=== PATIENT | female | born 1990 | race Caucasian/White ===

== ENCOUNTER 2018-06-20 13:30 | Emergency (ER) | payer OTHER ==
--- NOTE | 2018-06-20 13:43 | ED Physician Documentation ---
General Adult - HISTORIAN Historian: patient - HPI Stated Complaint: UTI, suprapubic catheter Chief Complaint: General Adult Onset: days ago (1) Timing: still present Severity: moderate Further Comments: yes (Pt is a 28 yo female with a suprapubic catheter that she has had for many years. 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 Pt is followed by urologist Dr. Mayers in [place] and has a follow-up appointment with him scheduled. Pt has been have L back/flank pain that began this am. No fever, n/v.) - ROS CONST: no problems EYES/ENT: none CVS/RESP: none GI/: other (cloudy urine, back pain) MS/SKIN/LYMPH: none - PAST HX Past History: kidney stones, other (chronic suprapubic catheter, "small bladder, one kidney not working well") Allergies/Adverse Reactions: Allergies Allergy/AdvReac Type Severity Reaction Status Date / Time Latex, Natural Rubber Allergy Verified 06/20/18 14:19 Home Medications: Ambulatory Orders Medication Instructions Recorded Ciprofloxacin HCl [Cipro] 500 mg PO DAILY #10 tablet 06/20/18 NK 06/20/18 - SOCIAL HX Smoking History: cigarettes - FAMILY HX Family History: No - REVIEWED ASSESSMENTS Nursing Assessment Reviewed: Yes Vitals Reviewed: Yes Progress - Progress Progress: Rocephin 1 gm IM in ER Rx Ciprofloxacin 500 mg. Take one by mouth once daily for 10 days. Follow up with urologist as planned. General Adult Physical Exam - PHYSICAL EXAM GENERAL APPEARANCE: mild distress EENT: pharynx normal NECK: normal inspection, supple RESPIRATORY: no resp distress, chest non-tender, breath sounds normal CVS: reg rate & rhythm, heart sounds normal ABDOMEN: soft, no organomegaly, normal bowel sounds BACK: normal inspection, CVA tenderness (L) SKIN: warm/dry, normal color EXTREMITIES: non-tender, normal range of motion, no evidence of injury, no edema NEURO: oriented X3, motor nml, sensation nml Discharge Clincal Impression: Suprpubic catheter UTI (urinary tract infection) Qualifiers: Urinary tract infection type: acute cystitis Hematuria presence: with hematuria Qualified Code(s): N30.01 - Acute cystitis with hematuria Prescriptions: Ciprofloxacin HCl [Cipro] 500 mg PO DAILY #10 tablet Referrals: Primary Doctor,No [Primary Care Provider] - 2 Days Condition: Stable Disposition: 01 HOME, SELF-CARE Decision to Admit: NO Decision Time: 14:33
[2018-06-20] MEDS ORDERED: cefTRIAXone SODIUM 1 GM INJ ONE (14:31)
[2018-06-20] MEDS ORDERED: LIDOCAINE HCL 1% PF 300MG/30ML VIAL ONE (14:32)
[2018-06-20] MEDS ORDERED: LIDOCAINE HCL 1% PF 300MG/30ML VIAL IJ ONE (14:36)
[2018-06-20 15:34] VITALS: BP 136/84
== END 2018-06-20 15:00 | disposition home or self-care (01) ==
LOC: ED 13:30
DX: N30.01 Acute cystitis with hematuria (principal); Z96.0 Presence of urogenital implants
CPT/HCPCS: 96372; 99282; J0696; J2001; 99284

== ENCOUNTER 2018-07-10 17:37 | Emergency (ER) | payer OTHER ==
[2018-07-10] MEDS ORDERED: ONDANSETRON HCL/PF 4 MG/ 2ML VIAL IVP ONE (18:05)
[2018-07-10] MEDS ORDERED: 0.9 % SODIUM CHLORIDE 1,000 ML IV ONE (18:20)
[2018-07-10] MEDS ORDERED: KETOROLAC TROMETHAMINE 30 MG/1ML VIAL IVP ONE (19:27)
[2018-07-10] MEDS ORDERED: ONDANSETRON HCL 4 MG TAB.RAPDIS PO ONE (22:30)
[2018-07-10] MEDS ORDERED: TAMSULOSIN HCL 0.4 MG CAP.ER.24H PO ONE (22:30)
--- NOTE | 2018-07-10 23:12 | Diagnostic Imaging Report ---
EUFEMIA DON [facility] [id number] [facility] [address] [place], [place]. [address] Report Submission Date: Jul 10, 2018 9:56:48 PM PUDDLER HELPER Patient Study Name: MELISA AMANDA Date: Jul 10, 2018 8:26:19 PM PUDDLER HELPER Modality Type: CT\SR Gender: F Description: ABD/PELV W/ : Institution: [facility] Physician: EUFEMIA DON CT abdomen and pelvis with contrast History: Urinary tract infection Technique: Helically acquired images were obtained from the hemidiaphragms to the pelvic floor following IV contrast. Findings: The liver, spleen, gallbladder, pancreas and adrenal glands are normal. There is mild right hydronephrosis and there is right hydroureter, most pronounced distally. Layering posteriorly within the bladder, there are multiple small stones. There is marked hydronephrosis of the left kidney resulting in cortical thinning of the left kidney. There is a delayed left nephrogram. The wall of the renal pelvis and of the left ureter is abnormally enhancing consistent with diffuse ureteritis. There is additionally inflammatory change surrounding the wall of the left renal pelvis and proximal to mid left ureter. The left ureter is dilated all the way to the bladder. However, only 1 stone is identified within the left ureter, posteriorly on image 76 of 101. This distal ureteral stone measures 3 mm. There is a catheter which enters the bladder from the umbilicus. The bladder wall is circumferentially thickened and the contour of the bladder is lobulated. The bladder is also asymmetrically positioned toward the right. There is air in the bladder presumably relating to the presence of the catheter. Surgical clips and sutures are present just superior to the bladder in association with a small bowel loop. In the region of the clips and sutures, there is a single mildly dilated small bowel loop containing an air-fluid level. Please correlate with the patient's surgical history. Essure type devices are present. The uterus and ovaries are unremarkable. There is no free fluid in the pelvis. Lung bases are clear. No osseous abnormalities are noted. Impression: There is mild right hydronephrosis and there is right hydroureter, most pronounced of the distal right ureter. The left collecting system is markedly abnormal. There is markedly severe left hydronephrosis. The dilated calices generate cortical thinning and there is a delayed left nephrogram. There is abnormal enhancement circumferentially involving the wall of the left renal pelvis and of the entire left ureter. These findings are consistent with severe left ureteritis. In addition to the mural enhancement, there is inflammatory change surrounding the left renal pelvis and proximal left ureter. Despite the degree of ureteral dilatation, only 1 stone is present. This stone is present within a distal portion of the ureter which is dilated up to 4 cm. This stone only measures 3 mm. There is a catheter which enters through the umbilicus into the bladder. There are some locules of air within the bladder, presumably relating to the catheterization. There is circumferential bladder wall thickening and the bladder has a lobulated contour extending eccentrically toward the right. Multiple small stones layer inferiorly within the bladder. There are surgical clips and sutures within the midline abdomen at and below the level of the umbilicus associated with a loop of bowel. In this location, there is a single loop of mildly dilated small bowel with an air-fluid level. Please correlate with the patient's surgical history in this regard. Essure devices of the fallopian tubes. Electronically signed on Jul 10, 2018 9:56:48 PM PUDDLER HELPER by: Flor SANCHEZ
[2018-07-11 08:57] LABS: APPEARANCE,URINE CLOUDY (CLEAR); COLOR,URINE YELLOW (YELLOW); OCCULT BLOOD,URINE LARGE (NEGATIVE); PH URINE 6.5 (5.0 - 8.0); UROBILINOGEN URINE 0.2 Eu (0.2-1.0)
[2018-07-12 07:35] LABS: eGFR (Non-African) > 60
[2018-07-12 07:36] LABS: BASOPHILS % 0.3 (0.0-1.5); EOSINOPHILS % 2.3 % (0.0-6.8); MEAN CORPUSCULAR HEMOGLOBIN 26.9 pg (28.0-34.0); MONOCYTES % 8.8 % (0.0-11.0)
[2018-07-12 07:37] LABS: NEUTROPHILS # 4.5 # k/uL (1.4-7.7)
== END 2018-07-10 22:42 | disposition home or self-care (01) ==
LOC: ED 17:37
DX: N20.0 Calculus of kidney (principal); N31.9 Neuromuscular dysfunction of bladder, unspecified; Z96.0 Presence of urogenital implants
CPT/HCPCS: 36415; 74177; 80053; 81002; 81025; 82150; 83690; 85025; 87040; 87086; 87801; 96374; 96375; 99283; 99285; A9270; J1885; J2405; J7030; Q9967; 87491

== ENCOUNTER 2018-08-09 07:15 | Emergency (ER) | payer OTHER ==
--- NOTE | 2018-08-09 07:41 | ED Physician Documentation ---
Female Urogenital Problems - HISTORIAN Historian: patient - HPI Chief Complaint: Female Urogenital Problems Additional Information: Patient is a 28-year-old female who presents to the ER to have her suprapubic catheter changed. She states that she thinks it is blocked because she has only been able to pull a few cc's each time from catheter starting yesterday. She has no catheter supplies to change it herself. She states that she is currently residing at the [facility]. Her Urologist is Dr. Reyez at the [facility]- she is scheduled for surgery next week to have some bladder/kidney stones removed. She has had the catheter since the age of 24 years old. Onset: days ago (started yesterday) Severity: mild Location of Pain: pelvic pain (due to bladder discomfort) Further Comments: no - Associated Symptoms Urinary Symptoms: other (bladder fullness) Discharge: denies: vaginal discharge - ROS CONST: no problems GI/: denies: nausea, vomiting CVS/RESP: denies: none EYES/ENT: denies: none NEURO/PSYCH: denies: none MS/SKIN/LYMPH: denies: none - PAST HX Past History: other (neurogenic bladder). denies: STD Other History: kidney stone(s), bladder infection, kidney infection Surgeries/Procedures: other (supra pubic catheter placed, multiple bladder surgeries) Immunizations: UTD Allergies/Adverse Reactions: Allergies Allergy/AdvReac Type Severity Reaction Status Date / Time Latex, Natural Rubber Allergy Rash Verified 08/09/18 08:05 vancomycin Allergy Rash Verified 08/09/18 08:05 Home Medications: Ambulatory Orders Medication Instructions Recorded Ciprofloxacin HCl [Cipro] 500 mg PO BID #14 tablet 08/09/18 - SOCIAL HX Smoking History: non-smoker Alcohol Use: none Drug Use: none - FAMILY HX Family History: none - VITAL SIGNS Vital Signs: Vital Signs Temp Pulse Resp BP Pulse Ox 136/84 06/20/18 15:00 - REVIEWED ASSESSMENTS Nursing Assessment Reviewed: Yes Vitals Reviewed: Yes Procedures - Additional Procedures Progress: RN replace supra pubic catheter with 250 ml's out. Urine is cloudy- UA positive- will send for culture ED Results Lab/Radiology - Lab Results Lab Results: Urinalysis positive for leukocytes - Orders Orders: ED Orders Category Date Time Status Ferreira [Urinary catheterization] 1T Care 08/09/18 07:35 Ordered Female Urogenital Problems - EXAM General Appearance: no acute distress, alert, mild distress EENT: eye inspection normal, ENT inspection normal, pharynx normal, no signs of dehydration, JON Neck: nml inspection Respiratory: no resp. distress, breath sounds nml CVS: reg rate & rhythm, heart sounds normal, equal pulses Abdomen: nml bowel sounds, tenderness (supra pubic) Rectal: deferred Back: CVA tenderness ("having surgery next week to have stones removed") Skin: color nml, no rash, warm,dry Extremities: non-tender, normal range of motion Neuro: oriented X3, CN's nml as tested, motor nml, sensation nml, mood/affect nml, cognition normal Discharge Clincal Impression: UTI (urinary tract infection), Encounter for care or replacement of suprapubic tube Clincal Impression: (Ruled Out): Encounter for Ferreira catheter replacement Prescriptions: Ciprofloxacin HCl [Cipro] 500 mg PO BID #14 tablet Referrals: Primary Doctor,No [Primary Care Provider] - 2 Days Additional Instructions: Keep surgical appointment next week with Dr. Mayers at the [facility] with [employer] will be contacting you to help you get "supra pubic" catheter supplies Take Cipro twice a day for 7 days (Make sure you take antibiotic as directed) Increase fluid intake (no caffeine) Follow up with Primary Care Provider as needed and after surgery for follow. Condition: Good Disposition: 01 HOME, SELF-CARE Decision to Admit: NO Decision Time: 08:09
[2018-08-09 08:06] LABS: APPEARANCE,URINE CLOUDY (CLEAR); COLOR,URINE YELLOW (YELLOW); OCCULT BLOOD,URINE 2+ (NEGATIVE)
[2018-08-09 08:07] LABS: PH URINE 7.5 (5.0 - 8.0); UROBILINOGEN URINE 0.2 Eu (0.2-1.0)
[2018-08-09 08:21] VITALS: BP 116/61
== END 2018-08-09 08:10 | disposition home or self-care (01) ==
LOC: ED 07:15
DX: N39.0 Urinary tract infection, site not specified (principal); B96.20 Unspecified Escherichia coli [E. coli] as the cause of diseases classified elsewhere; Z16.24 Resistance to multiple antibiotics; Z46.6 Encounter for fitting and adjustment of urinary device
CPT/HCPCS: 51702; 81002; 87086; 99283

== ENCOUNTER 2018-10-02 10:23 | Emergency (ER) | payer OTHER ==
--- NOTE | 2018-10-02 11:12 | ED Physician Documentation ---
General Adult - HISTORIAN Historian: patient - HPI Stated Complaint: suprapubic cathetar leaking Chief Complaint: General Adult Onset: other Severity: mild Further Comments: yes (Pt is a 28 yo female with hx kidney dz and long hx of having an indwelling suprapubic catheter. Pt is having no problems, but needs the catheter changed and is out of supplies. Pt comes to ER for a simple catheter change.) - ROS CONST: no problems CVS/RESP: none GI/: other (needs suprapubic catheter change) MS/SKIN/LYMPH: none - PAST HX Past History: kidney stones, renal disease Allergies/Adverse Reactions: Allergies Allergy/AdvReac Type Severity Reaction Status Date / Time codeine Allergy Verified 10/02/18 10:42 Latex, Natural Rubber Allergy Rash Verified 08/09/18 08:05 vancomycin Allergy Rash Verified 08/09/18 08:05 - SOCIAL HX Smoking History: non-smoker - FAMILY HX Family History: No - VITAL SIGNS Vital Signs: Vital Signs Temp Pulse Resp BP Pulse Ox 98 F 74 16 134/79 100 10/02/18 10:25 10/02/18 10:25 10/02/18 10:25 10/02/18 10:25 10/02/18 10:25 - REVIEWED ASSESSMENTS Nursing Assessment Reviewed: Yes Vitals Reviewed: Yes Progress - Progress Progress: suprapubic catheter changed U/a - wnl General Adult Physical Exam - PHYSICAL EXAM GENERAL APPEARANCE: no distress NECK: normal inspection, supple RESPIRATORY: no resp distress, breath sounds normal CVS: reg rate & rhythm, heart sounds normal ABDOMEN: soft, no organomegaly, normal bowel sounds BACK: normal inspection, no CVA tenderness SKIN: warm/dry, normal color EXTREMITIES: non-tender, normal range of motion, no evidence of injury NEURO: oriented X3, motor nml Discharge Clincal Impression: Encounter for care or replacement of suprapubic tube Referrals: Lorenzo Russell MD [Primary Care Provider] - Disposition: 01 HOME, SELF-CARE Decision to Admit: NO Decision Time: 11:13
[2018-10-02 11:31] VITALS: BP 122/68
[2018-10-02 12:35] LABS: APPEARANCE,URINE CLOUDY (CLEAR); COLOR,URINE YELLOW (YELLOW); OCCULT BLOOD,URINE TRACE (NEGATIVE); UROBILINOGEN URINE 0.2 Eu (0.2-1.0)
== END 2018-10-02 11:10 | disposition home or self-care (01) ==
LOC: ED 10:23
DX: Z46.6 Encounter for fitting and adjustment of urinary device (principal)
CPT/HCPCS: 51702; 81002; 99282; 99283

== ENCOUNTER 2019-05-25 08:46 | Emergency (ER) | payer OTHER ==
--- NOTE | 2019-05-25 08:52 | ED Physician Documentation ---
General Adult - HISTORIAN Historian: patient - HPI Stated Complaint: swelling on right lateral side of middle finger x 1 day Chief Complaint: Upper Extremity Problem Onset: days ago (1) Timing: still present Severity: mild Further Comments: yes (She states last night she noticed redness and swelling on left lateral side of middle finger right hand. She did use a needle at home to try to open the area with no drainage. No fever. She has not tried any warm soaks or OTC meds) - ROS CONST: no problems - PAST HX Past History: none Allergies/Adverse Reactions: Allergies Allergy/AdvReac Type Severity Reaction Status Date / Time codeine Allergy Verified 05/25/19 08:56 Latex, Natural Rubber Allergy Rash Verified 05/25/19 08:56 vancomycin Allergy Rash Verified 05/25/19 08:56 Home Medications: Ambulatory Orders Medication Instructions Recorded NK 05/25/19 - SOCIAL HX Smoking History: non-smoker Alcohol Use: none Drug Use: none - FAMILY HX Family History: No - VITAL SIGNS Vital Signs: Vital Signs Temp Pulse Resp BP Pulse Ox 122/68 10/02/18 11:28 - REVIEWED ASSESSMENTS Nursing Assessment Reviewed: Yes Vitals Reviewed: Yes General Adult Physical Exam - PHYSICAL EXAM GENERAL APPEARANCE: no distress EENT: eye inspection normal, no signs of dehydration NECK: normal inspection RESPIRATORY: no resp distress, chest non-tender CVS: reg rate & rhythm, heart sounds normal ABDOMEN: soft BACK: normal inspection SKIN: other (right hand middle finger left lateral side of nail with redness and swelling. No loss of sensation. FROM ) NEURO: oriented X3 Discharge Clincal Impression: Cellulitis of finger of right hand Referrals: Lorenzo Russell MD [Primary Care Provider] - 2 Days Comments: 1. Bactrim DS take 1 by mouth twice daily x 10 days 2. Warm soak finger 3. DO not use needle on area 4. Follow up with PCP for any continued concerns 5. Return to ER for any increased concerns Condition: Stable Disposition: 01 HOME, SELF-CARE Decision to Admit: NO Date of Decison to Admit: 05/25/19 Decision Time: 09:11
[2019-05-25 09:08] VITALS: BP 130/78
== END 2019-05-25 09:11 | disposition home or self-care (01) ==
LOC: ED 08:46
DX: L03.011 Cellulitis of right finger (principal)
CPT/HCPCS: 99282

== ENCOUNTER 2019-06-13 10:05 | Emergency (ER) | payer OTHER ==
--- NOTE | 2019-06-13 10:18 | ED Physician Documentation ---
Female Urogenital Problems - HISTORIAN Historian: patient - HPI Stated Complaint: needs her suprapubic cath changed - specialist is out of office Chief Complaint: General Adult Onset: hours (8) Location of Pain: other (cath not draining ) Further Comments: yes (She states she has a urologist and her indwelling cath suprapubic. She states she feels her bladder is full and it is barely draining and she states this is a sign for her to change but her specialist is out of the office and they would not give her an order she was told to come to the ER) - Associated Symptoms Urinary Symptoms: other (decrease draining from her cath ) - ROS CONST: none - PAST HX Past History: none Immunizations: UTD Allergies/Adverse Reactions: Allergies Allergy/AdvReac Type Severity Reaction Status Date / Time codeine Allergy Verified 06/13/19 10:21 Latex, Natural Rubber Allergy Rash Verified 06/13/19 10:21 vancomycin Allergy Rash Verified 06/13/19 10:21 Home Medications: Ambulatory Orders Medication Instructions Recorded Sulfamethoxazole/Trimethoprim 1 each PO BID 7 Days #14 tab 06/13/19 [Bactrim Ds] - SOCIAL HX Smoking History: cigarettes Alcohol Use: none Drug Use: none - FAMILY HX Family History: none - VITAL SIGNS Vital Signs: Vital Signs Temp Pulse Resp BP Pulse Ox 130/78 05/25/19 09:33 - REVIEWED ASSESSMENTS Nursing Assessment Reviewed: Yes Vitals Reviewed: Yes Female Urogenital Problems - EXAM General Appearance: no acute distress, alert EENT: eye inspection normal, no signs of dehydration Neck: nml inspection Respiratory: no resp. distress, breath sounds nml CVS: reg rate & rhythm, heart sounds normal Abdomen: soft, non-tender, nml bowel sounds Back: non-tender Skin: color nml, no rash, warm,dry, other (insertion site normal ) Extremities: non-tender, no edema Neuro: oriented X3 Discharge Clincal Impression: Encounter for care or replacement of suprapubic tube Prescriptions: Sulfamethoxazole/Trimethoprim [Bactrim Ds] 1 each PO BID 7 Days #14 tab Referrals: Lorenzo Russell MD [Primary Care Provider] - 2 Days Comments: 1. Follow up with urologist 2. Return to ER for any increased concerns Bactrim DS take 1 by mouth twice daily x 7 days Condition: Stable Disposition: 01 HOME, SELF-CARE Decision to Admit: NO Date of Decison to Admit: 06/13/19 Decision Time: 10:38
[2019-06-13 11:06] LABS: APPEARANCE,URINE CLOUDY (CLEAR); COLOR,URINE YELLOW (YELLOW); OCCULT BLOOD,URINE 2+ (NEGATIVE); PH URINE 8.5 (5.0 - 8.0); UROBILINOGEN URINE 0.2 Eu (0.2-1.0)
[2019-06-13 11:11] VITALS: BP 130/71
== END 2019-06-13 11:05 | disposition home or self-care (01) ==
LOC: ED 10:05
DX: Z43.8 Encounter for attention to other artificial openings (principal)
CPT/HCPCS: 51702; 81002; 87086; 87186